=== PATIENT | male | born 1945 | race Asian ===

== ENCOUNTER 2019-01-20 11:28 | Inpatient (IN) | payer BC, OTHER ==
[~2019-01-20] VITALS: Ht 167.6 cm; Wt 75.3 kg
[2019-01-20 11:28] VITALS: BP_SYST 155
[~2019-01-20 11:28] MED LIST: INDO50SU2 PO; VALS160T2 PO
--- NOTE | 2019-01-20 11:29 | NUR ---
Sonali lennon in ED - 01/20/19 at 1132 by [email or web address] Patient to [facility] to [facility] for evaluation. Side rails up.
--- NOTE | 2019-01-20 11:31 | NUR ---
Placed in room 8 . Placed on import export agent, blood pressure machine and pulse oximeter. To gown for exam. Side rails up. Report given to YANIQUE Del Toro.
--- NOTE | 2019-01-20 11:32 | NUR ---
ER Dr. Hampton at bedside examining patient.
--- NOTE | 2019-01-20 11:33 | NUR ---
Patient is awake, alert, and oriented x4. He has been complaining of flu-like symptoms for 2 days. Patient reports a history of HTN, CVA 2014, kidney disease, and prostate surgery. Patient denies pain at this time.
[2019-01-20] MEDS ORDERED: METOCLOPRAMIDE HCL 10 MG/2 ML VIAL IVP ONE (11:45)
[2019-01-20] MEDS ORDERED: MECLIZINE HCL 25 MG TABLET (ANITVERT) PO ONE (11:45)
[2019-01-20 12:35] LABS: HEMATOCRIT 43.3 % (36-54); HEMOGLOBIN 14.8 g/dL (14.0-18.0); MEAN CORPUSCULAR HEMOGLOBIN 32 pg (27-31); MEAN CORPUSCULAR HGB CONC 34 % (32-36); MEAN CORPUSCULAR VOLUME 93 fL (79.0-98.0); RED BLOOD CELL COUNT(AUTO) 4.64 MIL/uL (4.2-6.2); WHITE BLOOD COUNT (AUTO) 7.2 K/uL (4.8-10.8)
[2019-01-20 12:36] LABS: BASOPHILS % (AUTO) 0.5 % (0.0-2.0); EOSINOPHILS # (AUTO) 0.1 K/uL (0.0-0.4); EOSINOPHILS % (AUTO) 1.1 % (0.0-4.0); LYMPHOCYTES # (AUTO) 0.8 K/uL (1.0-5.5); LYMPHOCYTES % (AUTO) 10.7 % (20.5-51.5); MONOCYTES # (AUTO) 0.5 K/uL (0.0-1.0); MONOCYTES % (AUTO) 6.3 % (1.7-9.3); NEUTROPHILS # (AUTO) 5.8 K/uL (1.8-7.7); NEUTROPHILS % (AUTO) 81.4 % (40.0-70.0); PLATELET COUNT (AUTO) 176 K/uL (130-430); RED CELL DISTRIBUTION WIDTH 12.9 % (9.0-15.0)
[2019-01-20 12:52] LABS: ANION GAP 8 (5-15); CALCIUM 8.9 mg/dL (8.4-11.0); CHLORIDE 94 mmol/L (98-107); GLUCOSE 151 mg/dL (70-99); POTASSIUM 3.3 mmol/L (3.5-5.1); SODIUM SERUM 130 mmol/L (136-145); UREA NITROGEN, BLOOD 19 mg/dL (8-21)
[2019-01-20 12:57] LABS: ALANINE AMINOTRANSFERASE 19 U/L (12-78); ALBUMIN 3.6 g/dL (3.4-4.8); ASPARTATE AMINOTRANSFERASE 15 U/L (10-37); TOTAL BILIRUBIN 0.9 mg/dL (0.0-1.0)
[2019-01-20 13:01] LABS: PROTHROMBIN TIME 10.4 SECS (9.5-12.5)
--- NOTE | 2019-01-20 13:09 | NUR ---
Portable x-ray at bedside
[2019-01-20] MEDS ORDERED: ASPIRIN 325 MG TABLET PO ONE (14:00)
--- NOTE | 2019-01-20 16:05 | NUR ---
Assumed patient care from Sly CHANEL
--- NOTE | 2019-01-20 16:06 | NUR ---
Telephone orders from Dr Banuelos
[2019-01-20] MEDS ORDERED: IRBE300T40 PO (16:48)
[2019-01-20] MEDS ORDERED: LIP10 PO (16:48)
[2019-01-20] MEDS ORDERED: AMLO5TAB4 PO (16:48)
[2019-01-20] MEDS ORDERED: GLIM1TAB2 PO (16:48)
[2019-01-20] MEDS ORDERED: HYDR-4039 PO (16:48)
[2019-01-20] MEDS ORDERED: PANT20TA2 PO (16:48)
--- NOTE | 2019-01-20 16:51 | NUR ---
Patient will be admitted to care of Dr. Banuelos. Admitted to unit. Will go to room . Belongings list completed. Summary report printed. Report will be given at bedside.
--- NOTE | 2019-01-20 17:01 | NUR ---
ADMISSION NOTE Received patient from ER via carlos, received report from MATT CHANEL. Patient admitted with diagnosis of DIZZINESS. Patient oriented to hospital routine, call light, toileting and safety-patient verbalized understanding.
--- NOTE | 2019-01-20 17:05 | NUR ---
Report given to Justine CHANEL
[2019-01-20 17:15] VITALS: BP_SYST 141
[2019-01-20] MEDS ORDERED: HYDR12.55 PO (17:28)
--- NOTE | 2019-01-20 17:30 | NUR ---
Initial Note patient resting in bed, awake and alert, denies pain at this time, no SOB or distress noted, family at bedside, educated patient regarding plan of care, verbalized understanding, educated patient on use of call light for assistance, verbalized understanding, call light and bedside table left within reach, will continue to monitor patient
[2019-01-20] MEDS ORDERED: INSULIN REGULAR, HUMAN 100 UNITS/ML, 10 ML VIAL (novoLIN R) SUBCUT PRN (18:30)
[2019-01-20] MEDS ORDERED: DEXTROSE 50% JECT 50 ML DISP.SYRIN IVP PRN (18:30)
--- NOTE | 2019-01-20 18:45 | NUR ---
CLosing Note patient resting in bed, positioned to his side, no signs of distress, at bedside, denies pain, breathing unlabored on room air, safety precautions remain in place, will endorse to plant operator/shift supervisor nurse
--- NOTE | 2019-01-20 19:45 | NUR ---
OPENING NOTE Received patient awake, AOx4 resting on his left side. VSS and presently denies pain or dizziness. 18G SL IV to LAC. Bed is locked to lowest position, bed alarm on and instructed on use of call light.
[2019-01-20 20:00] VITALS: BP_SYST 127
--- NOTE | 2019-01-20 23:20 | NUR ---
ROUNDS Patient awake, wants to use urinal sitting at bedside intead of lying down. Released bed alarm and reset when he was back in bed. Patient denies dizziness. Call light near.
[2019-01-21 00:27] VITALS: BP_SYST 146
--- NOTE | 2019-01-21 00:40 | NUR ---
ROUNDS - Fingerstick B.S. Patient's fingerstick BS was checked and obtained result of 85. Patient was offered a snack and declined. Requested lights off and no further needs. Will monitor.
--- NOTE | 2019-01-21 02:10 | NUR ---
ROUNDS Patient resting w/ eyes closed. Nonlabored breathing, symmetrical rise and fall of chest. Will monitor.
--- NOTE | 2019-01-21 03:20 | NUR ---
Bradycardia on telemonitor [place] called to report patient's HR is 47. I went to assess and patient is awake and resting in side posture, pulse heart rate is 60. Patient states he has a history of low heart rate d/t history of athletic activity.
--- NOTE | 2019-01-21 06:36 | NUR ---
ROUNDS - CLOSING NOTE Patient is resting in comfortable position. Morning fingerstick b.s was done and no coverage is due. Needs met throughout shift. Safety precautions in place. Will endorse care to day shift nurse.
[2019-01-21] MEDS ORDERED: GLIMEPIRIDE 2 MG TABLET PO SCH (07:00)
--- NOTE | 2019-01-21 07:20 | NUR ---
AM ROUNDS: PATIENT RESTING WHEN CAME IN. REPORT GIVEN BY NIGHT NURSE ELIAN.CALL LIGHT WITH IN REACH. BED LOCKED AT LOWEST POSITION. NO NEEDS THIS TIME. STABLE.
--- NOTE | 2019-01-21 08:30 | NUR ---
MEDS PO: TOLERATED PO MEDS WITH OUT A PROBLEM.
[2019-01-21 08:36] VITALS: BP_SYST 144
[2019-01-21] MEDS ORDERED: IRBESARTAN 150 MG TABLET (AVAPRO) PO SCH (09:00)
[2019-01-21] MEDS ORDERED: amLODIPine BESYLATE 5 MG TABLET PO SCH (09:00)
[2019-01-21] MEDS ORDERED: HYDROCHLOROTHIAZIDE 12.5 MG CAPSULE (HCTZ) PO SCH (09:00)
[2019-01-21] MEDS ORDERED: ATORVASTATIN 10 MG TABLET PO SCH (09:00)
[2019-01-21] MEDS ORDERED: LOSARTAN POTASSIUM 50 MG TABLET (COZAAR) PO SCH (09:00)
[2019-01-21] MEDS ORDERED: hydrALAZINE HCL 25 MG TABLET PO SCH (09:00)
[2019-01-21] MEDS ORDERED: ASPIRIN 325 MG TABLET (ECOTRIN) PO ONE (09:30)
[2019-01-21 10:20] LABS: TRIGLYCERIDES 118 mg/dL (30-150)
[2019-01-21 10:21] LABS: CHOLESTEROL 108 mg/dL (<200); HDL CHOLESTEROL 51 mg/dL (>45); LDL CHOLESTEROL 48 mg/dL (<100)
--- NOTE | 2019-01-21 12:00 | NUR ---
BLOOD SUGAR: BLOOD SUGAR TAKEN,NO INSULIN COVERAGE PER SLIDING SCALE.
[2019-01-21 12:53] VITALS: BP_SYST 126
--- NOTE | 2019-01-21 13:20 | NUR ---
Back from Mri: Patient back from mri via wheelchair. No problem.
--- NOTE | 2019-01-21 14:02 | NUR ---
DC ORDER: DC HOME AND F/U WITH PCP IN [address] HERRON. PATIENT INFORMED.
[2019-01-21 15:10] VITALS: BP_SYST 141
[2019-01-21 16:34] VITALS: BP_SYST 141
--- NOTE | 2019-01-21 17:12 | NUR ---
D/C Patient Patient given medication reconciliation form and D/C instructions. Exit Care provided. Patient verbalized understanding. MD discussed with patient the results and treatment provided. Ambulatory with steady gait for discharge to home. Patient in stable condition, ID band removed. IV catheter removed, intact and dressing applied, no active bleeding. Patient educated on dizziness management. All belongings sent with patient.Ornamental Ironworking Supervisor wheeled patient to the [facility] and accompanied home by his and son.
[2019-01-22] MEDS ORDERED: ASPIRIN 325 MG TABLET (ECOTRIN) PO SCH (09:00)
--- NOTE | 2019-01-22 15:10 | NUR ---
Discharge Follow Up Phone Call QUALITY CONTROL TECHNICIAN phoned patient, . Patient stated he was doing fine, but had low blood pressure this morning. He will continue to monitor and will phone his PCP no later than tomorrow if he is concerned. He has follow up appointments scheduled with his PCP and penciller. He has not used his blood glucose monitor today but stated he would check his blood sugar later today. Patient had no other questions or concerns.
== END 2019-01-21 17:12 | disposition home or self-care (01) | DRG 69 ==
LOC: SED 11:28 → STU 16:16
PROVIDERS: ADMIT Internal Medicine Hospice and Palliative Medicine; ATTEND Internal Medicine Hospice and Palliative Medicine
DX: G45.9 Transient cerebral ischemic attack, unspecified (principal); I10 Essential (primary) hypertension; E11.9 Type 2 diabetes mellitus without complications; Z86.73 Personal history of transient ischemic attack (TIA), and cerebral infarction without residual deficits; K21.9 Gastro-esophageal reflux disease without esophagitis
CPT/HCPCS: 36415; 70450-TC; 70551; 71045; 80053; 80061; 82962; 84484; 85025; 85610-TC; 85730-TC; 93005; 93306; 93880; 96374; 99285; G0378; J1815; J2765; J8597